=== PATIENT | female | born 1965 ===

== ENCOUNTER 2017-09-21 17:59 | Emergency (ER) | payer OTHER ==
[2017-09-21 20:14] VITALS: RESP 16
--- NOTE | 2017-09-21 20:30 | ED PDOC ---
HPI: CCC, URI, Sore Throat Time Seen by Provider: 09/21/17 20:20 Chief Complaint (Nursing): Flu-like Symptoms Chief Complaint (Provider): fever History Per: Patient, Family History/Exam Limitations: no limitations Onset/Duration Of Symptoms: Days (2) Current Symptoms Are (Timing): Still Present Associated Symptoms: Fever, Chills, Cough, Sputum, Myalgias, Nasal Congestion Additional History Per: Patient Additional Complaint(s): 52 y/o female presents with fever x 2 days. Associated headache, bodyaches, nasal congestion, productive cough. PAtient has been taking over the counter sinus medication without improvement. Denies nausea/vomiting, chest pain, shortness of breath, palpitations, abdominal pain, changes in bowel movements, urinary symptoms, recent travel, sick contacts. Past Medical History Reviewed: Historical Data, Nursing Documentation, Vital Signs Vital Signs: Last Vital Signs Temp 99.7 F H 09/21/17 22:50 Pulse 101 H 09/21/17 22:50 Resp 16 09/21/17 22:50 BP 117/70 09/21/17 22:50 Pulse Ox 95 09/21/17 22:50 - Medical History PMH: No Chronic Diseases - Surgical History Surgical History: No Surg Hx - Family History Family History: States: No Known Family Hx - Home Medications Home Medications: Ambulatory Orders Medication Instructions Recorded Fluticasone Nasal [Flonase] 1 actuation NS BID #1 bottle 09/21/17 Ibuprofen [Motrin Tab] 1 tab PO Q6 PRN #20 tab 09/21/17 Oseltamivir [Tamiflu] 75 mg PO BID #9 cap 09/21/17 Promethazine DM [Phenergan DM 5 ml PO Q6 PRN #1 bottle 09/21/17 Syrup] - Allergies Allergies/Adverse Reactions: Allergies Allergy/AdvReac Type Severity Reaction Status Date / Time No Known Allergies Allergy Verified 09/21/17 20:12 Review of Systems ROS Statement: Except As Marked, All Systems Reviewed And Found Negative Constitutional: Positive for: Fever, Chills ENT: Positive for: Nose Congestion Respiratory: Positive for: Cough Physical Exam - Reviewed Nursing Documentation Reviewed: Yes Vital Signs Reviewed: Yes - Physical Exam Appears: Positive for: Well, Non-toxic, No Acute Distress Head Exam: Positive for: ATRAUMATIC, NORMAL INSPECTION, NORMOCEPHALIC Skin: Positive for: Normal Color Eye Exam: Positive for: Normal appearance ENT: Positive for: Nasal Congestion Cardiovascular/Chest: Positive for: Regular Rate, Rhythm Respiratory: Positive for: Normal Breath Sounds Gastrointestinal/Abdominal: Positive for: Normal Exam Back: Positive for: Normal Inspection Extremity: Positive for: Normal ROM Neurologic/Psych: Positive for: Alert, Oriented - ECG O2 Sat by Pulse Oximetry: 100 - Radiology X-Ray: Viewed By Me X-Ray Interpretation: No Acute Disease - Progress ED Course And Treament: chest xray, ibuprofen Patient educated on findings, discharged with rx Tamiflu (dose given in ED), flonase, promethazine DM, ibuprofen. Advised fluids, rest. Follow up PMD 2-3 days. Return precautions given. Disposition - Clinical Impression Clinical Impression: Influenza-like illness - Patient ED Disposition Is Patient to be Admitted: No Counseled Patient/Family Regarding: Studies Performed, Diagnosis, Need For Followup, Rx Given - Disposition Referrals: [facility] [Outside] Disposition: Routine/Home Disposition Time: 23:09 Condition: IMPROVED Prescriptions: Fluticasone Nasal [Flonase] 1 actuation NS BID #1 bottle Ibuprofen [Motrin Tab] 1 tab PO Q6 PRN #20 tab PRN Reason: Fever >100.4 F Oseltamivir [Tamiflu] 75 mg PO BID #9 cap Promethazine DM [Phenergan DM Syrup] 5 ml PO Q6 PRN #1 bottle PRN Reason: Cough Instructions: Flu Forms: [employer] ([place]ese) Print Language: MALAWIAN
[2017-09-21 22:51] VITALS: BP 117/70; PULSE 101; TEMP 99.7
[2017-09-21 23:10] VITALS: O2SAT 100
--- NOTE | 2017-09-22 09:18 | RAD ---
HISTORY: fever, cough COMPARISON: No prior. TECHNIQUE: Chest PA and lateral FINDINGS: LUNGS: No active pulmonary disease. PLEURA: No significant pleural effusion identified. No pneumothorax apparent. CARDIOVASCULAR: Normal. OSSEOUS STRUCTURES: Mild degenerative changes. VISUALIZED UPPER ABDOMEN: Normal. OTHER FINDINGS: None. IMPRESSION: No active disease.
== END 2017-09-21 23:15 | disposition home or self-care (01) ==
LOC: H.ER 17:59
DX: J11.1 Influenza due to unidentified influenza virus with other respiratory manifestations (principal)

== ENCOUNTER 2018-01-31 10:35 | Emergency (ER) | payer SELFPAY ==
[2018-01-31 11:05] VITALS: BMI 31.6
[2018-01-31 11:07] VITALS: TEMP 98.1
--- NOTE | 2018-01-31 11:51 | ED PDOC ---
HPI: Headache Time Seen by Provider: 01/31/18 11:12 Chief Complaint (Nursing): Headache History Per: Patient Onset/Duration Of Symptoms: Days (7) Current Symptoms Are (Timing): Still Present Severity: Moderate Quality: Aching Preceeding Symptoms: None Associated Symptoms: denies: Photophobia, Blurred Vision, Nausea, Vomiting, Extremity Weakness Additional Complaint(s): Left sided headache x 1 week. Denies fever or injury. Denies dizziness. No NV. No weakness or parasthesias. Past Medical History Vital Signs: Last Vital Signs Temp 98.1 F 01/31/18 11:06 Pulse 64 01/31/18 11:06 Resp 20 01/31/18 11:06 BP 119/73 01/31/18 11:06 Pulse Ox 97 01/31/18 11:06 - Medical History PMH: No Chronic Diseases - Family History Family History: States: Unknown Family Hx - Home Medications Home Medications: Ambulatory Orders Medication Instructions Recorded Naproxen [Naprosyn] 500 mg PO Q12H #20 tab 01/31/18 - Allergies Allergies/Adverse Reactions: Allergies Allergy/AdvReac Type Severity Reaction Status Date / Time No Known Allergies Allergy Verified 01/31/18 11:26 Review of Systems ROS Statement: Except As Marked, All Systems Reviewed And Found Negative Neurological: Positive for: Headache Physical Exam - Reviewed Nursing Documentation Reviewed: Yes Vital Signs Reviewed: Yes - Physical Exam Appears: Positive for: Well, Non-toxic, No Acute Distress Head Exam: Positive for: ATRAUMATIC, NORMAL INSPECTION, NORMOCEPHALIC Skin: Positive for: Normal Color, Warm, DRY Eye Exam: Positive for: EOMI, Normal appearance, PERRL ENT: Positive for: Normal ENT Inspection Neck: Positive for: Normal, Painless ROM, Supple Cardiovascular/Chest: Positive for: Regular Rate, Rhythm Respiratory: Positive for: CNT, Normal Breath Sounds Gastrointestinal/Abdominal: Positive for: Normal Exam, Soft Back: Positive for: Normal Inspection Extremity: Positive for: Normal ROM Neurologic/Psych: Positive for: Alert, Oriented. Negative for: Motor/Sensory Deficits - ECG O2 Sat by Pulse Oximetry: 97 Disposition - Clinical Impression Clinical Impression: Headache - Patient ED Disposition Is Patient to be Admitted: No Counseled Patient/Family Regarding: Studies Performed, Diagnosis, Need For Followup, Rx Given - Disposition Referrals: Zack Mallory MD [Medical Doctor] - Disposition: Routine/Home Disposition Time: 13:15 Condition: FAIR Prescriptions: Naproxen [Naprosyn] 500 mg PO Q12H #20 tab Instructions: Headache, Adult Forms: [employer] (Greek) Print Language: TELUGU
--- NOTE | 2018-01-31 12:44 | CT ---
PROCEDURE: CT HEAD WITHOUT CONTRAST. HISTORY: headache COMPARISON: None available. TECHNIQUE: Axial computed tomography images were obtained through the head/brain without intravenous contrast. Radiation dose: Total exam DLP = 801 mGy-cm. This CT exam was performed using one or more of the following dose reduction techniques: Automated exposure control, adjustment of the mA and/or kV according to patient size, and/or use of iterative reconstruction technique. FINDINGS: HEMORRHAGE: No intracranial hemorrhage. BRAIN: No mass effect or edema. No atrophy or chronic microvascular ischemic changes. VENTRICLES: Unremarkable. No hydrocephalus. CALVARIUM: Unremarkable. PARANASAL SINUSES: Unremarkable as visualized. No significant inflammatory changes. MASTOID AIR CELLS: Unremarkable as visualized. No inflammatory changes. OTHER FINDINGS: None. IMPRESSION: Normal CT of the Head.
[2018-01-31 13:22] VITALS: BP 123/76; PULSE 70; RESP 18; O2SAT 98
== END 2018-01-31 13:25 | disposition home or self-care (01) ==
LOC: H.ER 10:35
DX: R51 Headache (principal)

== ENCOUNTER 2018-11-19 21:20 | Emergency (ER) | payer OTHER, SELFPAY ==
[2018-11-19 21:39] VITALS: BMI 29.5
[2018-11-19 21:42] VITALS: BP 148/79; PULSE 73; RESP 18; TEMP 99.5; O2SAT 97
[2018-11-19] MEDS ORDERED: Oxycodone/Acetaminophen 5/325 mg Tab PO STA (21:55)
--- NOTE | 2018-11-19 21:57 | ED PDOC ---
HPI: General Adult Time Seen by Provider: 11/19/18 21:55 Chief Complaint (Nursing): Back Pain Chief Complaint (Provider): BACK PAIN History Per: Patient (53 Y/O FEMALE H/O HERNIATED DISC HERE WITH LEFT HIP PAIN RADIATING TO LEG. HAS TRIED ALLEVE INTERMITTENTLY WITHOUT RELIEF. NO URINARY OR RECTAL INCONTINENCE. LAST ATTEMPT AT ALLEVE THIS MORNING.) Past Medical History Reviewed: Historical Data, Nursing Documentation, Vital Signs Vital Signs: Last Vital Signs Temp 99.5 F 11/19/18 21:39 Pulse 73 11/19/18 21:39 Resp 18 11/19/18 21:39 BP 148/79 11/19/18 21:39 Pulse Ox 97 11/19/18 21:39 - Family History Family History: States: Unknown Family Hx - Home Medications Home Medications: Ambulatory Orders Medication Instructions Recorded Naproxen [Naprosyn] 500 mg PO Q12H #20 tab 01/31/18 Naproxen 375 mg PO Q8 PRN #21 tablet 11/19/18 diaZEpam [Valium] 5 mg PO Q8 PRN #3 tab 11/19/18 - Allergies Allergies/Adverse Reactions: Allergies Allergy/AdvReac Type Severity Reaction Status Date / Time No Known Allergies Allergy Verified 11/19/18 21:38 Review of Systems ROS Statement: Except As Marked, All Systems Reviewed And Found Negative Physical Exam - Reviewed Nursing Documentation Reviewed: Yes Vital Signs Reviewed: Yes - Physical Exam Appears: Positive for: Well, Non-toxic, No Acute Distress Head Exam: Positive for: ATRAUMATIC, NORMAL INSPECTION, NORMOCEPHALIC Skin: Positive for: Normal Color, Warm, DRY Eye Exam: Positive for: EOMI, Normal appearance, PERRL ENT: Positive for: Normal ENT Inspection Neck: Positive for: Normal, Painless ROM Cardiovascular/Chest: Positive for: Regular Rate, Rhythm Respiratory: Positive for: CNT, Normal Breath Sounds Gastrointestinal/Abdominal: Positive for: Normal Exam, Soft Back: Positive for: Normal Inspection, Other (MILD ERYTHEMA IN LEFT LOWER BACK ASSOCIATED WITH CUPPING DONE BY RELATIVE TO ASSIST WITH PAIN) Extremity: Positive for: Normal ROM, Tenderness (LEFT GLUTEAL REGION WITH TENDERNESS.) Neurological/Psych: Positive for: Awake, Alert, Normal Tone - ECG O2 Sat by Pulse Oximetry: 97 Disposition - Clinical Impression Clinical Impression: Sciatica - Patient ED Disposition Is Patient to be Admitted: No - Disposition Referrals: [facility] [Outside] Disposition: Routine/Home Disposition Time: 23:05 Condition: FAIR Prescriptions: diaZEpam [Valium] 5 mg PO Q8 PRN #3 tab PRN Reason: Muscle Spasm Naproxen 375 mg PO Q8 PRN #21 tablet PRN Reason: Pain, Moderate (4-7) Instructions: Sciatica (DC) Forms: [facility] ED School/Work Excuse Print Language: SERBIAN
[2018-11-19] MEDS ORDERED: Oxycodone/Acetaminophen 5/325 mg Tab ONE (22:04)
== END 2018-11-19 23:29 | disposition home or self-care (01) ==
LOC: H.ER 21:20
DX: M54.32 Sciatica, left side (principal)
CPT/HCPCS: 81025; 96372; 99283; J1885